=== PATIENT | male | born 1990 | race Caucasian/White ===

== ENCOUNTER → 2016-10-27 | Outpatient (CLI) | payer BC ==
--- NOTE | 2016-10-27 12:46 | ECHOF ---
Referral Reason:R07.89 chest pain MEASUREMENTS -------- HEIGHT: 177.8 cm WEIGHT: 86.2 kg BP: RVIDd: 2.7 cm (< 3.3) IVSd: 1.0 cm (0.6 - 1.1) LVIDd: 4.4 cm (3.9 - 5.3) LVPWd: 1.0 cm (0.6 - 1.1) IVSs: 1.2 cm LVIDs: 3.0 cm LVPWs: 1.4 cm LA Diam: 3.4 cm (2.7 - 3.8) Ao Diam: 2.7 cm (2.0 - 3.7) AV Cusp: 2.0 cm (1.5 - 2.6) LA Diam: 3.5 cm (2.7 - 3.8) MV EXCURSION: 18.048 mm (> 18.000) MV EF SLOPE: 105 mm/s (70 - 150) EPSS: 0.5 cm MV E Isaias: 0.98 m/s MV DecT: 207 ms MV A Isaias: 0.55 m/s MV E/A Ratio: 1.79 RAP: 5.00 mmHg RVSP: 22.09 mmHg FINDINGS -------- Sinus rhythm. This was a technically good study. LV size, wall thickness and systolic function are normal, with an EF greater than 55%. The right ventricle is normal in size. The left atrial size is normal. The aortic valve is trileaflet, and appears structurally normal. No aortic stenosis or regurgitation. The mitral valve is normal. There is trace mitral regurgitation. Trace tricuspid regurgitation present. There is no evidence of pulmonary hypertension. The right ventricular systolic pressure, as measured by Doppler, is 22.09mmHg. There is no pulmonic regurgitation present. The aortic root size is normal. There is no pericardial effusion. CONCLUSIONS -------- 1. Sinus rhythm. 2. This was a technically good study. 3. LV size, wall thickness and systolic function are normal, with an EF greater than 55%. 4. The left atrial size is normal. 5. The aortic valve is trileaflet, and appears structurally normal. No aortic stenosis or regurgitation. 6. Trace tricuspid regurgitation present. 7. There is no evidence of pulmonary hypertension. 8. There is no pulmonic regurgitation present. 9. There is no pericardial effusion. [employer]: Allison Silva RDCS
--- NOTE | 2016-10-27 13:00 | EST ---
DATE OF SERVICE: 10/27/2016 AGE: 26Y SEX: M HT: 70 WT: 190 lbs. Protocol Alex: X Other: Stage: IV Dur. of Exercise: 10:30 *Heart Rate Blood Pressure *Rest: 73 Rest: 130/93 * *Max. Achieved: 170 Maximum BP: 167/66 85% PMHR: 163 100% PMHR: 192 *METS: 12.1 INDICATIONS: Chest pain. MEDICATIONS: Baseline rhythm is sinus mechanism, rate 73, normal axis and intervals. Normal electrocardiogram. Baseline blood pressure 130/93 mmHg. Patient exercised on Alex protocol for 10 minutes 30 seconds reaching peak rate of 170 beats per minute, which is equal to 88% maximum predicted heart rate; peak blood pressure 167/66 mmHg. Test was terminated secondary to fatigue. There was no chest pain. Electrocardiographic monitoring revealed no evidence of diagnostic ischemic ST deviation. CONCLUSION: 1. Average exercise tolerance with normal electrocardiograph response to exercise. 2. No evidence of chest discomfort.
== END | disposition home or self-care (01) ==
LOC: RADNMMAIN 10:38
PROVIDERS: ATTEND Family Medicine
DX: I07.1 Rheumatic tricuspid insufficiency (principal); R07.89 Other chest pain; R00.2 Palpitations
CPT/HCPCS: 93017; 93225; 93226; 93306

== ENCOUNTER 2020-05-15 09:58 | Emergency (ER) | payer BC ==
[2020-05-15] MEDS ORDERED: IPRATROPIUM-ALBUTEROL 3 ML NEB INHALATION STA (10:12)
--- NOTE | 2020-05-15 10:22 | ED ---
General Adult HPI - General Chief complaint: Shortness of Breath Stated complaint: chest pain/SOB Time Seen by Provider: 05/15/20 10:06 Source: patient, RN notes reviewed Mode of arrival: ambulatory Limitations: no limitations - History of Present Illness Initial comments: This is a 30-year-old male presents emergency department with chief complaint of cough congestion shortness of breath. Patient states that he had some sinus issues for the last 7 days in which she was prescribed an antibiotic by his PCP. Patient has appears or chills no significant sweats. Patient states that he is a daily smoker no history of lung disease. He does not that he has recurrent sinus issues and this is why he is placed on antibiotics. Patient denies any chest pain but states that he feels they cannot get a full breath in. He has no exertional dyspnea no calf pain or leg swelling. Patient states that he uses inhalers in the past from his upper respiratory infection feels that he needs one. Patient denies any ear pain no significant sore throat. No difficulty swallowing. - Related Data Home Medications Medication Instructions Recorded Confirmed Albuterol Sulfate [Albuterol 1 - 2 puff PO RT-QID PRN 05/15/20 05/15/20 Sulfate Hfa] Azithromycin [Zithromax] 500 mg PO HS 05/15/20 05/15/20 Cholecalciferol (Vitamin D3) 125 mcg PO HS 05/15/20 05/15/20 [Vitamin D3] Loratadine 10 mg PO HS PRN 05/15/20 05/15/20 Zinc Gluconate [Zinc] 50 mg PO HS 05/15/20 05/15/20 Previous Rx's Medication Instructions Recorded predniSONE 50 mg PO DAILY #5 tab 05/15/20 Allergies Allergy/AdvReac Type Severity Reaction Status Date / Time almond Allergy Unknown Verified 05/15/20 10:27 amoxicillin Allergy Unknown Verified 05/15/20 10:27 Childhood Penicillins Allergy Unknown Verified 05/15/20 10:27 Childhood Review of Systems ROS Statement: Those systems with pertinent positive or pertinent negative responses have been documented in the HPI. ROS Other: All systems not noted in ROS Statement are negative. Past Medical History Additional Past Medical History / Comment(s): psoriasis History of Any Multi-Drug Resistant Organisms: None Reported Past Surgical History: No Surgical Hx Reported Smoking Status: Current every day smoker Past Alcohol Use History: None Reported Past Drug Use History: None Reported General Exam Limitations: no limitations General appearance: alert, in no apparent distress Head exam: Present: atraumatic, normocephalic, normal inspection Eye exam: Present: normal appearance, PERRL, EOMI. Absent: scleral icterus, conjunctival injection, periorbital swelling ENT exam: Present: mucous membranes moist, TM's normal bilaterally, normal external ear exam. Absent: normal oropharynx (Mild drainage) Neck exam: Present: normal inspection, full ROM. Absent: tenderness, meningismus, lymphadenopathy Respiratory exam: Present: normal lung sounds bilaterally. Absent: respiratory distress, wheezes, rales, rhonchi, stridor Cardiovascular Exam: Present: regular rate, normal rhythm, normal heart sounds. Absent: systolic murmur, diastolic murmur, rubs, gallop, clicks GI/Abdominal exam: Present: soft, normal bowel sounds. Absent: distended, tenderness, guarding, rebound, rigid Back exam: Absent: CVA tenderness (R), CVA tenderness (L) Neurological exam: Present: alert, oriented X3 Skin exam: Present: warm, dry, intact, normal color. Absent: rash Course Vital Signs 05/15/20 05/15/20 05/15/20 10:00 10:32 10:41 Temperature 98.2 F Pulse Rate 81 80 82 Respiratory 18 Rate Blood Pressure 139/92 O2 Sat by Pulse 99 Oximetry - Reevaluation(s) Reevaluation #1: 05/15/20 10:58 Patient reevaluated states that he feels greatly improved after breathing treatment updated on results. Medical Decision Making - Medical Decision Making 30-year-old male presented for cough congestion. Patient x-rays unremarkable. Patient's is no sign stress, vitals reviewed unremarkable. Patient we di scharged with a course of steroids. Patient has acute bronchitis continue antibiotics and advised to use his inhaler that he has at home. Return parameters were discussed. Disposition Clinical Impression: Acute bronchitis Disposition: HOME SELF-CARE Condition: Stable Instructions (If sedation given, give patient instructions): Acute Bronchitis (ED) Additional Instructions: Please return to the Emergency Department if symptoms worsen or any other con cerns. Prescriptions: predniSONE 50 mg PO DAILY #5 tab Is patient prescribed a controlled substance at d/c from ED?: No Referrals: Shayla Simms MD [Primary Care Provider] - 1-2 days Time of Disposition: 10:59
--- NOTE | 2020-05-15 10:25 | XR ---
EXAMINATION TYPE: XR chest 2V DATE OF EXAM: 05/15/2020 COMPARISON: NONE HISTORY: Cough and shortness of breath for a few days. TECHNIQUE: Frontal and lateral views of the chest are obtained. FINDINGS: There is no focal air space opacity, pleural effusion, or pneumothorax seen. The cardiac silhouette size is within normal limits. The osseous structures are intact. IMPRESSION: No acute cardiopulmonary process.
[2020-05-15 11:13] VITALS: BP 135/78; PULSE 81; RESP 16; TEMP 98
== END 2020-05-15 11:12 | disposition home or self-care (01) ==
LOC: EC 09:58
DX: J20.9 Acute bronchitis, unspecified (principal); F17.200 Nicotine dependence, unspecified, uncomplicated; Z88.0 Allergy status to penicillin; Z91.018 Allergy to other foods
CPT/HCPCS: 71046; 94640; 99285